=== PATIENT | male | born 1990 | race Caucasian/White ===

== ENCOUNTER 2025-05-02 10:24 | Emergency (ER) | payer SELFPAY ==
[~2025-05-02] VITALS: Ht 162.6 cm; Wt 98.0 kg
[2025-05-02 12:15] VITALS: BP 159/106; TEMP 36.9; O2SAT 100
[2025-05-02] MEDS ORDERED: DEXAMETHASONE 4MG TABLET PO ONE (13:45)
[2025-05-02] MEDS: ALBUTEROL (0.083%) 2.5MG/3ML NEB HHN SCH (14:31)
[2025-05-02] MEDS: IPRATROPIUM BROMIDE (0.02%) 0.5MG/2.5ML NEB HHN SCH (14:31)
[2025-05-02 14:33] VITALS: PULSE 64; RESP 18; O2SAT 98
[2025-05-02 15:15] LABS: BASOPHILS % 0.6 % (0.0-2.0); EOSINOPHILS % 2.7 % (0.0-5.0); HEMATOCRIT. 47.0 % (42.0-52.0); HEMOGLOBIN. 15.4 g/dL (14.0-18.0); LYMPHOCYTES % 27.0 % (20.0-50.0); MEAN PLATELET VOLUME 9.3 fl (7.4-10.4); MONOCYTES % 8.5 % (2.0-8.0); NEUTROPHILS % 61.2 % (40.0-76.0); PLATELET 230 x1000/uL (130-400); RED BLOOD CELL COUNT 5.80 mill/uL (4.7-6.1); RED CELL DISTRIBUTION WIDTH 14.7 % (11.6-14.6)
[2025-05-02 15:35] LABS: TROPONIN I HIGH SENSITIVITY < 4 ng/L (3.0-53)
[2025-05-02 15:41] LABS: CREATININE 0.8 mg/dL (0.6-1.3)
[2025-05-02 15:42] LABS: PROTEIN TOTAL 7.9 g/dL (6.0-8.3); UREA NITROGEN BLOOD 5 mg/dL (9-23)
[2025-05-02 15:43] LABS: ASPARTATE AMINOTRANSFERASE 26 IU/L (<34); BILIRUBIN DIRECT 0.2 mg/dL (<=3.0)
[2025-05-02 15:44] LABS: BILIRUBIN TOTAL 0.9 mg/dL (0.1-1.0)
[2025-05-02] MEDS: DEXAMETHASONE 4MG TABLET PO SCH (15:58)
[2025-05-02] MEDS ORDERED: ALBU18HF2 IH (16:24)
== END 2025-05-02 16:36 | disposition home or self-care (01) ==
LOC: ER 10:24
DX: J45.901 Unspecified asthma with (acute) exacerbation (principal); R07.9 Chest pain, unspecified
CPT/HCPCS: 80076; 80048; 85025; 84484; 36415; 71045; 94640; 93005; 99285; J8540; Z7610 ×4; 94070; 94664; A4606